=== PATIENT | female | born 1970 | race Caucasian/White ===

== ENCOUNTER 2017-04-19 22:53 | Emergency (ER) | payer OTHER ==
[~2017-04-19] VITALS: Ht 160 cm; Wt 52.1 kg
[~2017-04-19 22:53] MED LIST: BENADRYL25 MG PO; CARAFATE1 GM PO; CIPRO500 MG PO; ENDOCET 5-3251 EACH PO; FLAGYL500 MG PO; FLONASE16 G1 BOTH NARES; HYDROXYZINE HCL50 MG PO; IMITREX4 MG/0.5 M SC; IMITREX6 MG/0.5 M SC; LATUDA40 MG PO; LIORESAL10 MG PO; LOPID600 MG PO; LYRICA50 MG PO; LYRICA75 MG PO; MEDROL DOSEPAK4 MG PO; METHADOSE10 MG/1 ML PO; MORPHINE SULFAT15 M1 PO; MOTRIN800 MG PO; ONDANSETRON HCL4 MG PO; OXAYDO5 MG PO; PERCOCET 7.51 TABLET PO; PRILOSEC10 MG PO; PROMETHAZINE HC25 M1 PO; TEGRETOL-XR,CA400 MG PO; TROKENDI XR200 MG PO; TROKENDI XR25 MG PO; VENTOLIN HFA18 GM IH; WELLBUTRIN XL150 MG PO; ZYRTEC10 M2 PO
[2017-04-20 02:22] VITALS: BP 97/61
== END 2017-04-20 02:23 | disposition home or self-care (01) ==
LOC: EME 22:53
DX: M62.830 Muscle spasm of back (principal); F17.200 Nicotine dependence, unspecified, uncomplicated
CPT/HCPCS: 99281; 99284

== ENCOUNTER 2017-04-22 03:54 | Emergency (ER) | payer OTHER ==
[~2017-04-22] VITALS: Ht 160 cm; Wt 48.8 kg
[2017-04-22 04:30] VITALS: BP 144/73
== END 2017-04-22 04:31 | disposition home or self-care (01) ==
LOC: EME 03:54
DX: G89.29 Other chronic pain (principal); M54.9 Dorsalgia, unspecified; M79.89 Other specified soft tissue disorders; E78.5 Hyperlipidemia, unspecified; Z90.710 Acquired absence of both cervix and uterus; F17.200 Nicotine dependence, unspecified, uncomplicated
CPT/HCPCS: 99281; 99284

== ENCOUNTER 2017-11-26 02:55 | Emergency (ER) | payer OTHER ==
[~2017-11-26] VITALS: Ht 160 cm; Wt 50.5 kg
[2017-11-26] MEDS ORDERED: CLEOCIN300 MG PO (04:00)
[2017-11-26] MEDS ORDERED: NORCO 5/3251 TABLET PO (04:00)
[2017-11-26 04:35] VITALS: BP 103/79
== END 2017-11-26 04:35 | disposition home or self-care (01) ==
LOC: EME 02:55
DX: N61.0 Mastitis without abscess (principal); K21.9 Gastro-esophageal reflux disease without esophagitis; E78.5 Hyperlipidemia, unspecified; G43.909 Migraine, unspecified, not intractable, without status migrainosus; Z88.2 Allergy status to sulfonamides; Z88.1 Allergy status to other antibiotic agents; Z88.0 Allergy status to penicillin; F17.200 Nicotine dependence, unspecified, uncomplicated
CPT/HCPCS: 99281; 99283

== ENCOUNTER 2018-02-07 22:06 | Emergency (ER) | payer OTHER ==
[~2018-02-07] VITALS: Ht 160 cm; Wt 50.1 kg
[~2018-02-07 22:06] MED LIST changes: +CLEOCIN300 MG PO; +NORCO 5/3251 TABLET PO
[2018-02-08 00:18] VITALS: BP 90/63
== END 2018-02-08 00:18 | disposition home or self-care (01) ==
LOC: EME 22:06
DX: M62.838 Other muscle spasm (principal); G89.29 Other chronic pain; F12.90 Cannabis use, unspecified, uncomplicated; F17.200 Nicotine dependence, unspecified, uncomplicated; Z88.2 Allergy status to sulfonamides; Z88.1 Allergy status to other antibiotic agents; Z88.0 Allergy status to penicillin
CPT/HCPCS: 99281; 99283

== ENCOUNTER 2018-05-03 11:44 | Emergency (ER) | payer OTHER ==
[~2018-05-03] VITALS: Ht 160 cm; Wt 47.1 kg
[2018-05-03 13:42] VITALS: BP 108/69
== END 2018-05-03 13:43 | disposition home or self-care (01) ==
LOC: EME 11:44
DX: L02.214 Cutaneous abscess of groin (principal); F17.200 Nicotine dependence, unspecified, uncomplicated; Z88.2 Allergy status to sulfonamides; Z88.0 Allergy status to penicillin; Z88.1 Allergy status to other antibiotic agents
CPT/HCPCS: 99281; 99284